=== PATIENT | female | born 1990 | race Two or more races ===

== ENCOUNTER 2019-03-03 08:39 | Emergency (ER) | payer OTHER ==
[~2019-03-03] VITALS: Ht 167.6 cm; Wt 88.0 kg
[~2019-03-03 08:39] MED LIST: CRINONE1.125 G1 VAG; NIFE60TA3 PO; PRENATAL 19 TA1 EAC1 PO
== END 2019-03-03 12:41 | disposition home or self-care (01) ==
LOC: ER 08:39
DX: J45.998 Other asthma (principal)

== ENCOUNTER 2020-04-04 06:34 | Emergency (ER) | payer OTHER ==
[~2020-04-04] VITALS: Ht 167.6 cm; Wt 88.9 kg
[2020-04-04] MEDS ORDERED: TYLENOR (06:52)
[2020-04-04] MEDS ORDERED: GAS-X125 M1 (06:53)
== END 2020-04-04 15:57 | disposition home or self-care (01) ==
LOC: ER 06:34
DX: D27.0 Benign neoplasm of right ovary (principal); R10.31 Right lower quadrant pain

== ENCOUNTER 2020-04-26 07:24 | Outpatient (CLI) | payer OTHER ==
[~2020-04-26 07:24] MED LIST changes: +GAS-X125 M1; +TYLENOR
== END 2020-04-26 07:47 | disposition home or self-care (01) ==
LOC: LAB 07:24
PROVIDERS: ATTEND Obstetrics & Gynecology Gynecology
DX: D64.89 Other specified anemias (principal); I10 Essential (primary) hypertension; D27.0 Benign neoplasm of right ovary; R97.1 Elevated cancer antigen 125 [CA 125]; B17.8 Other specified acute viral hepatitis; D50.8 Other iron deficiency anemias

== ENCOUNTER 2020-05-10 06:18 | Day surgery (SDC) | payer OTHER ==
[2020-05-10] MEDS ORDERED: PERCOCET 5-3251 EACH PO (11:06)
== END 2020-05-10 12:35 | disposition home or self-care (01) ==
LOC: CIR.AMB 06:18
PROVIDERS: ATTEND Obstetrics & Gynecology Gynecology
DX: D27.0 Benign neoplasm of right ovary (principal); Z20.828 Contact with and (suspected) exposure to other viral communicable diseases

== ENCOUNTER → 2021-05-01 | Emergency (ER) | payer OTHER ==
[~2021-05-01] VITALS: Ht 167.6 cm; Wt 89.8 kg
[~2021-05-01] MED LIST changes: +PERCOCET 5-3251 EACH PO
== END | disposition home or self-care (01) ==
LOC: ER 16:23
DX: J06.9 Acute upper respiratory infection, unspecified (principal)

== ENCOUNTER 2022-06-25 11:57 | Emergency (ER) | payer OTHER ==
[~2022-06-25] VITALS: Ht 167.6 cm; Wt 90.7 kg
[2022-06-25] MEDS ORDERED: NIKKI 3 MG-0.01 EACH PO (12:13)
== END 2022-06-25 14:01 | disposition home or self-care (01) ==
LOC: ER 11:57
DX: S60.457A Superficial foreign body of left little finger, initial encounter (principal); W26.8XXA Contact with other sharp object(s), not elsewhere classified, initial encounter; Y93.89 Activity, other specified; Y92.89 Other specified places as the place of occurrence of the external cause; Y99.8 Other external cause status

== ENCOUNTER 2023-02-12 18:55 | Emergency (ER) | payer OTHER ==
[~2023-02-12] VITALS: Ht 167.6 cm; Wt 93.4 kg
[~2023-02-12 18:55] MED LIST changes: +NIKKI 3 MG-0.01 EACH PO
== END 2023-02-12 21:29 | disposition home or self-care (01) ==
LOC: ER 18:55
DX: L55.0 Sunburn of first degree (principal)

== ENCOUNTER 2023-02-14 14:07 | Emergency (ER) | payer OTHER ==
[~2023-02-14] VITALS: Ht 167.6 cm; Wt 94.8 kg
== END 2023-02-14 17:05 | disposition home or self-care (01) ==
LOC: ER 14:07
DX: R00.2 Palpitations (principal)